=== PATIENT | female | born 1955 | race Caucasian/White ===

== ENCOUNTER 2023-08-06 06:18 | Day surgery (SDC) | payer OTHER ==
[~2023-08-06] VITALS: Ht 157.5 cm; Wt 72.6 kg
[~2023-08-06 06:18] MED LIST: BUPIVACAINE /PF 0.5% 30 ML VIAL ONE; GLYCOPYRROLATE 0.2 MG/ML VIAL ONE; LIDOCAINE 1% 10 MG/ML, 20 ML MDV ONE; LR 1,000 ML IV.SOLN IV ONE; METOCLOPRAMIDE HCL 10 MG/2 ML VIAL ONE; MIDAZOLAM HCL 2 MG/2 ML VIAL (VERSED) ONE; NEOSTIGMINE METHYLSULFATE 1 MG/ML, 10 ML VIAL ONE; NS IRRIG SOLN 1000 ML IR ONE; ONDANSETRON HCL 4 MG/2 ML VIAL ONE; PROPOFOL 200MG/ 20ML VIAL (DIPRIVAN) IV ONE; ROCURONIUM BROMIDE 10 MG/ML (ZEMURON) ONE; SEVOFLURANE 15 MIN GAS INH ONE; WATER FOR IRRIGATION,STERILE 1,000 ML IRRIG.SOLN IR ONE; fentaNYL CITRATE/PF 100 MCG/2 ML AMP ONE
[2023-08-06] MEDS ORDERED: ceFAZolin SODIUM 2 GM in D5W 50 ML IV ONE (07:00)
[2023-08-06] MEDS ORDERED: ACETAMINOPHEN I.V. 1000 MG 100 ML IV ONE (08:50)
[2023-08-06] MEDS ORDERED: traMADol HCL HCL 50 MG TABLET (ULTRAM) PO PRN (10:00)
[2023-08-06 16:28] VITALS: BP_SYST 149; PULSE 65; RESP 16; TEMP 98; O2SAT 98
== END 2023-08-06 12:30 | disposition home or self-care (01) ==
LOC: SOR 06:18 → SMU 06:18 → SOR 12:30
PROVIDERS: ATTEND Surgery
DX: K80.10 Calculus of gallbladder with chronic cholecystitis without obstruction (principal); E78.5 Hyperlipidemia, unspecified; F41.1 Generalized anxiety disorder; D69.2 Other nonthrombocytopenic purpura; Z79.899 Other long term (current) drug therapy
CPT/HCPCS: 87081; 47562; 88304; J3490 ×2; J2765; J3465; J2405; J2704; J3010; J7120; J7060; C1727; J0131; J2710; J2001